=== PATIENT | male | born 1965 | race Caucasian/White ===

== ENCOUNTER 2019-06-14 12:33 | Day surgery (SDC) | payer BC ==
[~2019-06-14] VITALS: Ht 175.3 cm; Wt 111.7 kg
[~2019-06-14 12:33] MED LIST: ALBU90OI INH; AMLO5 PO; CHOL10002; CRUTCH USE; HYDACE10B PO; LISHYD2012; LOSARTAN POTAS100 MG PO; METO50ER PO; Mobic15 MG PO; NAPR500 PO; RXLORA1 PO
--- NOTE | 2019-06-14 16:36 | NUR ---
06/14/19 1636 Akua Farooq [facility].ERF DISCONTINUED PT. IV.
== END 2019-06-14 16:05 | disposition home or self-care (01) ==
LOC: ORSCSDS 12:33
PROVIDERS: Surgery
PROC: 0DJD8ZZ Inspection of Lower Intestinal Tract, Via Natural or Artificial Opening Endoscopic (ICD-10-PCS; principal; 2019-06-14 14:00)
DX: Z12.11 Encounter for screening for malignant neoplasm of colon (principal); K57.30 Diverticulosis of large intestine without perforation or abscess without bleeding; Z86.010 Personal history of colon polyps; I10 Essential (primary) hypertension; E78.5 Hyperlipidemia, unspecified; Z79.899 Other long term (current) drug therapy; Z87.891 Personal history of nicotine dependence
CPT/HCPCS: J2704; J7120

== ENCOUNTER 2020-11-13 16:40 | Observation (INO) | payer BC ==
[~2020-11-13] VITALS: Ht 175.3 cm; Wt 115.9 kg
[2020-11-13 17:16] LABS: BASOPHILS ABSOLUTE AUTO 0.07 K/mm3 (0.00-0.23); BASOPHILS PERCENT AUTO 1 % (0-2); EOSINOPHILS ABSOLUTE AUTO 0.24 K/mm3 (0.00-0.68); EOSINOPHILS PERCENT AUTO 4 % (0-6); Hematocrit 45.7 % (37.0-53.0); Hemoglobin 15.4 g/dL (13.5-17.5); IMMATURE GRAN ABSOLUTE AUTO 0.01 K/mm3 (0.00-0.10); IMMATURE GRAN PERCENT AUTO 0 % (0-1); LYMPHOCYTES ABSOLUTE AUTO 2.04 K/mm3 (0.84-5.20); LYMPHOCYTES PERCENT AUTO 30 % (21-46); MONOCYTES ABSOLUTE AUTO 0.81 K/mm3 (0.16-1.47); MONOCYTES PERCENT AUTO 12 % (4-13); Mean Corpuscular HGB 30.3 pg (26.0-34.0); Mean Corpuscular HGB Conc 33.7 g/dL (31.5-36.5); Mean Corpuscular Volume 90 fL (80-100); Mean Platelet Volume 9.7 fL (9.1-12.4); NEUTROPHILS ABSOLUTE AUTO 3.58 K/mm3 (1.96-9.15); NEUTROPHILS PERCENT AUTO 53 % (41-73); Platelet Count 217 K/mm3 (150-400); RDW Coefficient Variation 12.3 % (11.7-14.2); RDW Standard Deviation 40.8 fL (35.1-46.3); Red Blood Cell Count 5.09 M/mm3 (4.30-5.90); White Blood Cell Count 6.75 K/mm3 (4.00-11.30)
[2020-11-13 18:37] LABS: Alanine Aminotransfer (ALT/SGP 38 U/L (12-78); Albumin, Blood 3.4 g/dL (3.4-5.0); Albumin/Globulin Ratio 0.8 (0.8-1.8); Alk Phos 162 U/L (50-136); Anion Gap 5 mmol/L (6-16); Aspartate Aminotrans (AST/SGOT 25 U/L (12-37); Bilirubin, Total 0.2 mg/dL (0.1-1.0); Blood Urea Nitrogen 23 mg/dL (8-24); Bun/Creatinine Ratio 30.6 (12.0-20.0); CO2, Blood 27 mmol/L (21-32); Chloride, Blood 108 mmol/L (98-108); Creatinine, Blood 0.75 mg/dL (0.60-1.20); Glomerular Filtration Rate >60 (60-); Glucose, Blood 93 mg/dL (70-99); Potassium, Blood 4.2 mmol/L (3.5-5.5); Sodium, Blood 140 mmol/L (136-145); Total Protein, Blood 7.4 g/dL (6.4-8.2); Troponin I <0.015 ng/mL (0.000-0.040)
[2020-11-13 21:54] LABS: CPK Creatine Kinase 121 U/L (39-308); Troponin I <0.015 ng/mL (0.000-0.040)
--- NOTE | 2020-11-13 22:15 | NUR ---
REPORT RECIEVED FROM FRANKLIN AND PT T/F VIA W/C TO ROOM 333 AT 2200. HE'S A/OX4, INDEPENDENT AND WAS ORIENTED ROOM AND CALL SYSTEM. URINAL PROVIDED AT BEDSIDE. WILL MEDICATE PER EMAR. IV IS SL. HE DENIES CP AND ALL OTHER S/S CARDIAC DISTRESS BUT IS AWARE TO CALL IF THIS OCCURS. ROSE.
--- NOTE | 2020-11-13 23:15 | NUR ---
MED LIST NEEDS OBTAINED FROM PT'S PCP (). PT IS UNSURE IF HE'S MEANT TO BE TAKING NORVASC STILL. HIS FILLED THE RX ONLINE MOST RECENTLY AND SHE FEARS SHE MAY HAVE MISSED THE NORVASC RX. HE BELIEVES HE HASN'T BEEN TAKING IT FOR "AT LEAST A WEEK OR TWO". WILL DISCUSS W/DAY RN.
--- NOTE | 2020-11-13 23:20 | NUR ---
PT REQUESTS SOMETHING TO HELP HIM SLEEP AND C/O MILD "ANXIOUS FEELING" SINCE DEVELOPMENT OF INTERMITTENT CP THIS AM. RX'D ATIVAN 0.5 MG PO X1.
[2020-11-14] MEDS ORDERED: LOSARTAN-HCTZ1 EAC5 PO (00:07)
[2020-11-14] MEDS ORDERED: AMLO5 PO (00:11)
[2020-11-14 05:48] LABS: BASOPHILS ABSOLUTE AUTO 0.07 K/mm3 (0.00-0.23); BASOPHILS PERCENT AUTO 1 % (0-2); EOSINOPHILS ABSOLUTE AUTO 0.32 K/mm3 (0.00-0.68); EOSINOPHILS PERCENT AUTO 5 % (0-6); Hematocrit 44.9 % (37.0-53.0); Hemoglobin 15.2 g/dL (13.5-17.5); IMMATURE GRAN ABSOLUTE AUTO 0.02 K/mm3 (0.00-0.10); IMMATURE GRAN PERCENT AUTO 0 % (0-1); LYMPHOCYTES PERCENT AUTO 31 % (21-46); MONOCYTES ABSOLUTE AUTO 0.79 K/mm3 (0.16-1.47); MONOCYTES PERCENT AUTO 13 % (4-13); Mean Corpuscular HGB 30.6 pg (26.0-34.0); Mean Corpuscular HGB Conc 33.9 g/dL (31.5-36.5); Mean Corpuscular Volume 90 fL (80-100); Mean Platelet Volume 9.6 fL (9.1-12.4); NEUTROPHILS ABSOLUTE AUTO 3.03 K/mm3 (1.96-9.15); NEUTROPHILS PERCENT AUTO 50 % (41-73); Platelet Count 170 K/mm3 (150-400); RDW Coefficient Variation 12.4 % (11.7-14.2); RDW Standard Deviation 41.2 fL (35.1-46.3); Red Blood Cell Count 4.97 M/mm3 (4.30-5.90); White Blood Cell Count 6.13 K/mm3 (4.00-11.30)
[2020-11-14 06:11] LABS: Alanine Aminotransfer (ALT/SGP 38 U/L (12-78); Albumin, Blood 3.1 g/dL (3.4-5.0); Albumin/Globulin Ratio 0.8 (0.8-1.8); Alk Phos 115 U/L (50-136); Anion Gap 5 mmol/L (6-16); Aspartate Aminotrans (AST/SGOT 20 U/L (12-37); Bilirubin, Total 0.3 mg/dL (0.1-1.0); Blood Urea Nitrogen 20 mg/dL (8-24); Bun/Creatinine Ratio 24.5 (12.0-20.0); CO2, Blood 29 mmol/L (21-32); CPK Creatine Kinase 103 U/L (39-308); Calcium, Blood 8.8 mg/dL (8.5-10.1); Chloride, Blood 105 mmol/L (98-108); Creatinine, Blood 0.82 mg/dL (0.60-1.20); Globulin, Blood 3.7 g/dL (2.2-4.0); Glomerular Filtration Rate >60 (60-); Glucose, Blood 101 mg/dL (70-99); Potassium, Blood 3.9 mmol/L (3.5-5.5); Sodium, Blood 139 mmol/L (136-145); Total Protein, Blood 6.8 g/dL (6.4-8.2); Troponin I <0.015 ng/mL (0.000-0.040)
--- NOTE | 2020-11-14 06:24 | NUR ---
SUMMARY: PT A/OX4, INDEPENDENT AND CALLS APPROPRIATELY FOR ASSIST. HE REPORTED VERY MILD STERNAL PAIN X1 BUT DENIED ANY ASSOCIATED S/S CARDIAC DISTRESS AND REFUSED NEEDING ANY PRN PAIN MEDS. HE SAID IS WAS "JUST ENOUGH TO REMIND HIM IT WAS THERE" AND RESOLVED SPONTANEOUSLY. TROPONINS REMAIN (-) AND PT IS NSR AT 60'S BPM PER TELEMETRY. HE BEGAN SHIFT HYPERTENSIVE BUT BP IMPROVED W/O ANY MEDS. SOME CONFUSION EXISTS RE: WHETHER HE IS MEANT TO BE TAKING NORVASC SO HOME MEDS NEED CLARIFIED W/'S OFFICE. HE HASN'T BEEN TAKING IT AND PT/FAMILY QUESTION IF THIS COULD'VE BEEN A CONTRIBUTING FACTOR TO SYMPTOMS EXPERIENCED PRIOR TO ADMIT, WILL DISCUSS W/DAY RN. HE HAD X1 DOSE ATIVAN PO PRN PER REQUEST FOR SLEEP AND REPORTED GOOD EFFECT THIS MORNING. LOVENOX WAS RECIEVED AND HE REFUSED HIS FLU VACCINE. IV SL. VSS/AFEBRILE AND NO ACUTE CHANGES. WCTM AND REPORT TO DAY RN.
--- NOTE | 2020-11-14 19:26 | NUR ---
Client AA&Ox4. Pleasant and cooperative. Denies pain. Independent in room. Lab values WNL. Client has elected to stay and undergo stress test. michaeler in drawer. There was confusion with orders with double maalox orders this AM clarified with storage battery charger. Pharmacy DC meds. This RN was unable to Dc from medlist. IV left hand easily flushed.
--- NOTE | 2020-11-15 05:25 | NUR ---
SHIFT SUMMARY PATIENT HAD NO ACUTE CHANGES OBSERVED. AXOX 4 AND INDEPENDENT IN ROOM. PIV REMAINS INTACT. CONTOUR BAND SAW OPERATOR VERTICAL REPORTS NSR 70. VSS/AFEBRILE. DENIES CHEST PAIN, SOB, AND N/V. REPORTED INSOMNIA AND HOSPITALIST GOOD SLEEVE SETTER ORDERED PO ATIVAN 0.5 MG X ONE AND ABLE TO SLEEP T/O SHIFT. CALL LIGHT IN REACH. BED IN LOWEST POSITION. WILL CONTINUE TO MONITOR UNTIL DAY SHIFT NURSE ASSUMES CARE.
--- NOTE | 2020-11-15 15:17 | NUR ---
SHIFT SUMMARY PT AWAKE DURING SHIFT REPORT, WATCHING TV. NO C/O. CONTINUES TO DENY CP TO PRESENT, SINCE YESTERDAY AM; RESOLVED WITH GI COCKTAIL. PT ABLE TO EAT BREAKFAST THIS AM AND THEN NPO FOR REMAINING PART OF STRESS TEST. [facility] HERE AT LUNCH TIME FOR REMAINING TESTS. PT'S HERE FOR VISITOR HRS. PT UP TO SHOWER THIS AM AFTER BREAKFAST. PT IS INDEPENDENT IN AND TO BTHRM. CALL LT IN REACH. ABLE TO MAKE NEEDS KNOWN. DR RUSSO IN THIS AM. PT WANTING TO GO HOME AFTER TEST RESULTS RETURNED IF POSSIBLE. PT AWARE OF THE WAIT.
--- NOTE | 2020-11-15 17:31 | NUR ---
STRESS TEST COMPLETE AND PT BECOMING IMPATIENT WITH WAITING FOR RESULTS TO COME BACK. DR RUSSO NOTIFIED WHEN RESULTS RETURNED. STRESS TEST WNL'S, PER DR RUSSO. D/C ORDERS PLACED. IV SITE D/C'D WNL'S. TELE REMOVED AND RETURNED. D/C INSTRUCTIONS REVIEWED WITH PT; VERBALIZED UNDERSTANDING. PT LEFT WITH .
== END 2020-11-15 17:30 | disposition home or self-care (01) ==
LOC: ER 16:40 → MEDS 16:41
PROVIDERS: Physician Assistant; ADMIT Internal Medicine
DX: R07.9 Chest pain, unspecified (principal); I10 Essential (primary) hypertension; F17.210 Nicotine dependence, cigarettes, uncomplicated; E66.9 Obesity, unspecified; Z68.36 Body mass index [BMI] 36.0-36.9, adult
CPT/HCPCS: 36415; 71046; 78452; 80053; 82550; 83690; 83735; 84484; 85025; 93005; 93010; 93017; 96372; 99285-25; A9270; A9500; G0378; J0706; J1650; J2785

== ENCOUNTER 2024-10-02 23:34 | Emergency (ER) | payer SELFPAY ==
[~2024-10-02] VITALS: Ht 177.8 cm; Wt 111.1 kg
[~2024-10-02 23:34] MED LIST changes: +LOSARTAN-HCTZ1 EAC5 PO
[2024-10-03] MEDS ORDERED: Ketorolac Tromethamine 30mg Vial IV ONE (00:15)
[2024-10-03] MEDS ORDERED: Ondansetron HCl 2 MG / ML 2ML Vial IV ONE (00:15)
[2024-10-03 01:06] LABS: BASOPHILS ABSOLUTE AUTO 0.08 K/mm3 (0.00-0.23); BASOPHILS PERCENT AUTO 1 % (0-2); EOSINOPHILS ABSOLUTE AUTO 0.03 K/mm3 (0.00-0.68); EOSINOPHILS PERCENT AUTO 0 % (0-6); Hematocrit 42.1 % (37.0-53.0); Hemoglobin 14.7 g/dL (13.5-17.5); IMMATURE GRAN ABSOLUTE AUTO 0.03 K/mm3 (0.00-0.10); IMMATURE GRAN PERCENT AUTO 0 % (0-1); LYMPHOCYTES ABSOLUTE AUTO 1.08 K/mm3 (0.84-5.20); LYMPHOCYTES PERCENT AUTO 14 % (21-46); MONOCYTES ABSOLUTE AUTO 0.57 K/mm3 (0.16-1.47); MONOCYTES PERCENT AUTO 7 % (4-13); Mean Corpuscular HGB 30.1 pg (26.0-34.0); Mean Corpuscular HGB Conc 34.9 g/dL (31.5-36.5); Mean Corpuscular Volume 86 fL (80-100); Mean Platelet Volume 9.5 fL (9.1-12.4); NEUTROPHILS ABSOLUTE AUTO 5.94 K/mm3 (1.96-9.15); NEUTROPHILS PERCENT AUTO 77 % (41-73); Platelet Count 189 K/mm3 (150-400); RDW Standard Deviation 38.3 fL (35.1-46.3); Red Blood Cell Count 4.88 M/mm3 (4.30-5.90); White Blood Cell Count 7.73 K/mm3 (4.00-11.30)
[2024-10-03 01:46] LABS: Albumin, Blood 3.7 g/dL (3.4-5.0); Albumin/Globulin Ratio 0.9 (0.8-1.8); Bilirubin, Total 0.3 mg/dL (0.1-1.0); Bun/Creatinine Ratio 19.6 (12.0-20.0); Calcium, Blood 9.1 mg/dL (8.5-10.1); Creatinine, Blood 1.02 mg/dL (0.60-1.20); Potassium, Blood 4.3 mmol/L (3.5-5.5); Total Protein, Blood 7.7 g/dL (6.4-8.2)
[2024-10-03 02:17] LABS: Source, Urine Clean Catch
[2024-10-03 02:24] LABS: Bilirubin, Urine Neg (Neg); Blood, Urine 4+ (Neg); Glucose Qualitative, Urine Neg (Neg); Ketones, Urine Neg (Neg); Leukocyte Esterase, Urine Neg (Neg); Nitrite, Urine Neg (Neg); Protein, Urine Neg (Neg); Urobilinogen, Urine NORM (Normal); pH, Urine 6.5 (5.0-8.0)
[2024-10-03 02:30] VITALS: BP 160/72
[2024-10-03 02:34] LABS: Appearance, Urine Clear (Clear); Bacteria Not Seen /hpf; Color, Urine Yellow (P-Yellow); Red Blood Cells, Urine 50-100 /hpf (0-2); Squamous Epithelial Cells Not Seen /hpf (Few); White Blood Cells, Urine Not Seen /hpf (0-5)
[2024-10-03] MEDS ORDERED: KETO10 PO (03:15)
[2024-10-03] MEDS ORDERED: TAMS.4ER PO (03:15)
[2024-10-03] MEDS ORDERED: OXAYDO5 M1 PO (03:15)
[2024-10-03] MEDS ORDERED: Ketorolac Tromethamine 15mg Vial IV ONE (03:20)
[2024-10-03] MEDS ORDERED: Tamsulosin HCl 0.4 MG Cap PO ONE (03:20)
== END 2024-10-03 03:41 | disposition home or self-care (01) ==
LOC: ER 23:34
PROVIDERS: Physician Assistant
DX: N13.2 Hydronephrosis with renal and ureteral calculous obstruction (principal); I10 Essential (primary) hypertension; F17.210 Nicotine dependence, cigarettes, uncomplicated; E66.9 Obesity, unspecified; Z68.35 Body mass index [BMI] 35.0-35.9, adult
CPT/HCPCS: 74177; 80053; 81001; 85025; 96374-59; 96375; 96376; 99284-25; A9270; J1885; J2405; Q9967